=== PATIENT | male | born 1980 | race Caucasian/White ===

== ENCOUNTER 2025-02-13 06:33 | Day surgery (SDC) | payer OTHER ==
[2025-02-13] MEDS: Lactated Ringers 1,000 ML IV SCH (06:50)
[2025-02-13] MEDS ORDERED: propofoL IV ONE ×2 (08:00→08:11)
[2025-02-13 08:23] VITALS: RESP 20; O2SAT 98
[2025-02-13 08:37] VITALS: BP 110/71; PULSE 78; TEMP 97.4
--- NOTE | 2025-02-14 09:02 | OP ---
SURGERY DATE/TIME: 02/13/2025 [id number] PREOPERATIVE DIAGNOSIS: Screening exam. POSTOPERATIVE DIAGNOSIS: Small polyp in the transverse colon. PROCEDURE: Colonoscopy with cold forceps biopsy. SURGEON: Severino Leavitt MD ANESTHESIA: Medication given by the anesthesia department. INDICATIONS: The patient is a 44-year-old white male patient presenting now for screening colonoscopy. He was apprised of the risks of the procedure including the risk of perforation, phlebitis, untoward reaction to medication, bleeding, and missed lesions. The patient verbalized understanding and desired to have the procedure performed. DESCRIPTION OF PROCEDURE AND FINDINGS: The patient had been given medication by the anesthesia department. He had continuous pulse oximetry, ECG monitoring, and intermittent blood pressure monitoring during the examination. He was placed in left lateral decubitus position. Digital rectal examination was performed and revealed normal anal sphincter tone, no masses, normal prostate. Flexible Olympus videocolonoscope inserted in the rectum. A view of the colon was developed sequentially to the cecum. Upon insertion and withdrawal was noted a small polyp in the transverse colon. This was destroyed using 2 passes of the cold forceps biopsy instrument. No other mucosal lesions being encountered. The scope was removed from the patient, who tolerated the procedure well and was sent back to outpatient recovery in good condition. The prep was noted to be good.
== END 2025-02-13 08:45 | disposition home or self-care (01) ==
LOC: SDC 06:33
PROVIDERS: ATTEND Family Medicine
DX: Z12.11 Encounter for screening for malignant neoplasm of colon (principal); D12.3 Benign neoplasm of transverse colon